=== PATIENT | male | born 1990 | race Caucasian/White ===

== ENCOUNTER 2022-05-09 18:40 | Emergency (ER) | payer OTHER, SELFPAY ==
--- NOTE | 2022-05-09 18:58 | ED.SKABFB ---
HPI - Skin/Abscess/Foreign Bdy General Chief complaint: Wound/Laceration Stated complaint: tick bite Time Seen by Provider: 05/09/22 18:49 Source: patient and RN notes reviewed Mode of arrival: ambulatory Limitations: no limitations History of Present Illness HPI narrative: 31-year-old male presents with concern for rash on his right upper arm. Reports 2 weeks ago he pulled a tick out of that area. Reports he noticed the rash yesterday. Reports it is slightly itchy and irritating, denies pain. He denies any foreign body, reports he the entire take to his knowledge. He denies fever, body aches, chills, sweats, headache, chest pain, abnormal heart beat, nausea, vomiting. Reports he has been cleaning the rash with alcohol to dry it out MD complaint: rash Related Data Allergies Allergy/AdvReac Type Severity Reaction Status Date / Time No Known Allergies Allergy Unverified 10/02/15 13:07 Review of Systems Review of Systems: CONSTITUTIONAL: Denies malaise, chills, sweats, or fever. EYES: Denies redness, or discharge. ENT: Denies rhinorrhea, congestion, swollen lips, swollen tongue CARDIOVASCULAR: Denies chest pain, palpitations, or edema. RESPIRATORY: Denies cough or dyspnea. GASTROINTESTINAL: Denies abdominal pain, nausea, vomiting SKIN: Reports rash to the right upper arm MUSCULOSKELETAL: Denies joint painor myalgia. NEUROLOGIC: Denies headache. All systems reviewed & are unremarkable except as noted in HPI and below PMFSH Family History Family History (Updated 06/28/16 @ 23:19 by DOCTOR UNKNOWN) Father Asthma Malignant neoplasm of prostate Mother Family history of diabetes mellitus in first degree relative Family history of malignant neoplasm of breast in first degree relative Social History Social History Alcohol intake: current Substance use type: marijuana Comments At time of signature, agree with nursing past medical, surgical, social and family history. There is no relevant family history pertinent to the presenting complaint Exam Narrative: GENERAL: Well-appearing, well-nourished, and in no acute distress. HEAD: Normocephalic, atraumatic. EYES: PERRLA, conjunctivae clear ENT: Mucous membranes moist. NECK: Supple. No lymphadenopathy CHEST: Clear to auscultation. No respiratory distress. HEART: Regular rate and rhythm. SKIN: Warm, dry. Bull's-eye pattern rash noted to the right upper arm at the site of tick bite NEURO: Alert and oriented x3. PSYCH: Normal mood and affect Chest: Chest/axillae images: 1. Bull's-eye pattern rash 8cm x 4cm Course Course Emergency Course: This with patient over a rash in association with his tick bite, patient does not have a primary care provider, for that reason we will prescribe 2-week course of doxycycline, patient was still advised to follow-up and find primary Provider for reevaluation. Patient is aware of diagnosis, understands and agrees to treatment plan. Anticipatory guidance given. Patient agrees to follow-up as directed and is aware of reasons to seek care at the emergency department. Portions of this record may have been created with voice recognition software Level of Care: Express Care Visit Vital Signs Vital signs: Reviewed. MDM - Skin/Abscess/Foreign Bdy MDM Narrative Medical decision making narrative: Does not appear at this time to be erythema multiforme, bullous, SJS, TEN; no evidence at this time to suggest RMSF, endocarditis or Lyme disease; patient looks well, nontoxic and is tolerating oral intake; no neurologic signs or symptoms; no headache, photophobia or neck pain; afebrile; appropriate for initial outpatient treatment; discussed the importance of follow-up, patient agrees; question, viral exanthema, contact dermatitis, allergic dermatitis, eczema, urticaria, cellulitis. No soft palate or uvula edema, no tongue, lip edema or other mucosal involvement, no respiratory compromise, no stridor, no wheezing, no wheezing, no his
== END 2022-05-09 19:10 | disposition home or self-care (01) ==
PROVIDERS: Emergency Provider Nurse Practitioner
DX: S40.861A Insect bite (nonvenomous) of right upper arm, initial encounter (principal); W57.XXXA Bitten or stung by nonvenomous insect and other nonvenomous arthropods, initial encounter; A69.20 Lyme disease, unspecified
CPT/HCPCS: 99213; G0463

== ENCOUNTER 2025-09-28 17:46 | Emergency (ER) | payer OTHER, SELFPAY ==
--- NOTE | 2025-09-28 17:51 | ED.URI ---
HPI - URI/Sore Throat General Chief Complaint: Upper Respiratory Infection Stated Complaint: ?Strep Time Seen by Provider: 09/28/25 18:09 Source: patient and RN notes reviewed Mode of arrival: ambulatory Limitations: no limitations History of Present Illness HPI Narrative: 35-year-old male presents with concern for sore throat that started last night cold reports mild runny nose. He denies fever, body aches, chills, sweats, headache, stomach ache. He reports he had strep throat last year the fell similar. MD elicited complaint: cough Related Data Home Medications ?Medication ?Instructions ?Recorded ?Confirmed ?Last Taken ?Type No Home Medications 09/28/25 09/28/25 Unknown History Allergies Allergy/AdvReac Type Severity Reaction Status Date / Time No Known Allergies Allergy Verified 09/28/25 18:01 Review of Systems Review of Systems: CONSTITUTIONAL: Denies malaise, chills, sweats, or fever. EYES: Denies visual changes, redness, or discharge. ENT: Reports rhinorrhea, sore throat. Denies congestion, sinus pain, otalgia CARDIOVASCULAR: Denies chest pain, palpitations, or edema. RESPIRATORY: Denies cough. Denies dyspnea. GASTROINTESTINAL: Denies abdominal pain, nausea, vomiting, diarrhea SKIN: Denies rash or itching. MUSCULOSKELETAL: Denies myalgia. NEUROLOGIC: Denies headache. All systems reviewed & are unremarkable except as noted in HPI and below PMFSH Past Medical History Medical History (Updated 09/28/25 @ 18:11 by Yamini Pederson APRN) Hx of tear of meniscus of knee joint left Hx of fracture of face bones Family History Family History Father Asthma Malignant neoplasm of prostate Mother Family history of diabetes mellitus in first degree relative Family history of malignant neoplasm of breast in first degree relative Social History Social History (Updated 07/26/22 @ 08:57 by Sonal Bull MA) Smoking status: Never smoker Second hand tobacco smoke exposure: No Alcohol intake: current Drinks per week: 15 Substance use: current Substance use type: marijuana Living arrangements: with family Occupation/Education: occupation Gender identity (if verbalized by the patient): Male Spiritual care concerns: No Comments At time of signature, agree with nursing past medical, surgical, social and family history. There is no relevant family history pertinent to the presenting complaint Exam Narrative: GENERAL: Well-appearing, well-nourished, and in no acute distress. HEAD: Normocephalic EYES: PERRLA, conjunctivae clear ENT: Nares clear, clear discharge. Mucous membranes moist. TM pearly arnett with sharp light reflex bilaterally; no tragal tenderness. Oropharynx not erythematous without lesions. Tonsils not enlarged and without exudate, no drooling, no hoarseness, no trismus, uvula midline. NECK: Supple. No lymphadenopathy CHEST: Clear to auscultation, breath sounds equal. No wheezing, rhonchi, rales, or stridor. No respiratory distress, speaks in full sentences. HEART: Regular rate and rhythm. No murmur heard. SKIN: Warm, dry, no rash. NEURO: Alert and oriented x3. PSYCH: Normal mood and affect Course Course Emergency Course: Patient is aware of diagnosis, understands and agrees to treatment plan. Anticipatory guidance given. Patient agrees to follow-up as directed and is aware of reasons to seek care at the emergency department. Portions of this record may have been created with voice recognition software Level of Care: Express Care Visit Vital Signs Vital signs: Reviewed. MDM - URI/Sore Throat MDM Narrative Medical decision making narrative: Differential diagnosis considered: Hernandes virus, strep pharyngitis, allergic rhinitis, upper respiratory tract infection, sinusitis, rhinosinusitis, nasopharyngitis. viral pharyngitis, otitis media, otitis externa, pneumonia, bronchitis, viral cough syndrome, viral syndrome, and influenza. Exam findings show no acute concerns or changes; patient is non-toxic appearing and is in no distress. Patient is appropriate for outpatient treatment and follow-up. Lab Data Attestation: I reviewed the patient's lab results. Critical Care Time Critical Care Time Critical Care Time: No Discharge Plan Discharge Clinical Impression: Upper respiratory infection Patient Disposition: Home Condition: Stable Instructions: Upper Respiratory Infection (ED) Additional Instructions: Your rapid strep swab was negative today at [facility]. A throat culture will be sent to the laboratory for further testing. If the test is positive, you will receive a phone call within 48 hours and an appropriate antibiotic will be initiated at that time. Your symptoms are likely due to a viral illness, which is not treated with antibiotics. Viral symptoms can be present for up to a few weeks. -Alternate Tylenol and Motrin per package directions for fever or pain. -Antihistamine medication such as Benadryl at night and Zyrtec during the day can help improve symptoms. -Eat and drink things that are easy to swallow, like tea or soup, or popsicles to suck on. -Oral rinses such as: Salt water gargles and/or may use topical anesthetic (eg. Chloraseptic spray) or lozenges to relieve dryness or throat pain). -Frequent hand washing or hand client services analyst is one of the best ways to prevent spread of infection. -Follow up with primary care provider in 2-3 days if condition is not improving; or seek ER visit if you have trouble breathing, cannot drink enough fluids, have muffled voice, difficulty opening your mouth, or severe swelling. Patient Language: Indian Follow-up/Referrals: PHYSICIAN,SALES COMMUNICATIONS MANAGER [Primary Care Provider, Internal Medicine] Time of Disposition: 18:11
[2025-09-28 17:58] VITALS: BP 111/78; PULSE 71; RESP 16; TEMP 36.6; O2SAT 100
[2025-09-28 18:08] LABS: EDSTREPNEGPOS1 Negative (Negative)
--- OUTSIDE RECORDS SUMMARY | 2025-09-28 18:11 | XMS_ITS | Clinical Summary ---
Author Organization [facility] Address [address] [place] [address] Phone Care Team Providers Care Pipe Puller Name Role Phone Provider, None Primary Care Provider Unavailabl e Medications No known medications Social History Tobacco Use Types Packs/Day Years Used Date Smoking Tobacco: Never Assessed Sex and Gender Information Value Date Recorded Sex Assigned at Not on file Legal Sex Male 2:00 PM NEWS WIRE PHOTO OPERATOR Gender Identity Not on file Sexual Orientation Not on file Last Filed Vital Signs Vital Sign Reading Time Taken Comments Blood Pressure 135/68 01/21/2025 3:53 PM NEWS WIRE PHOTO OPERATOR Pulse 91 01/21/2025 3:53 PM NEWS WIRE PHOTO OPERATOR Temperature 37.5 C (99.5 F) 01/21/2025 3:53 PM NEWS WIRE PHOTO OPERATOR Respiratory Rate 18 01/21/2025 3:53 PM NEWS WIRE PHOTO OPERATOR Oxygen Saturation 98% 01/21/2025 3:53 PM NEWS WIRE PHOTO OPERATOR Inhaled Oxygen Concentration - - Weight 77.1 kg (170 lb) 01/21/2025 2:10 PM NEWS WIRE PHOTO OPERATOR Height 177.8 cm (5' 10) 01/21/2025 2:10 PM NEWS WIRE PHOTO OPERATOR Body Mass Index 24.39 01/21/2025 2:10 PM NEWS WIRE PHOTO OPERATOR Plan of Treatment Not on file Insurance [employer] Care Teams Pipe Puller Relationship Specialty Start Date End Date Provider, None [place] PCP - General 01/21/25
--- OUTSIDE RECORDS SUMMARY | 2025-09-28 18:11 | XMS_ITS | Clinical Summary ---
Author Organization [facility] Health Address [address] [place] [address] Care Team Providers Care Server Developer Name Role Phone Unavailable Primary Care Provider Unavailabl e Source Comments [facility],non-owned Affiliates and Associated Physician Practices is amultiple site organization consisting of ambulatory clinics and hospital sitesin [place], [place], [place] and [place]. This disclosure is being madepursuant to the Care Everywhere program and may not contain all information available regarding this patient. Last updated 18.[facility] [employer] Allergies No known active allergies Immunizations Immunization Administration Dates Next Due INFLUENZA VACCINE, QUADR. (F LUZONE; FLULAVAL; FLUARIX; AFLURIA QUADRIVALENT; 6MO+), 0.5 ML (IIV4) 09/21/2019,09/15/2018 Social History Tobacco Use Types Packs/Day Years Used Date Smoking Tobacco: Never Assessed Sex and Gender Information Value Date Recorded Sex Assigned at Not on file Legal Sex Male 3:34 PM CDT Gender Identity Not on file Sexual Orientation Not on file Plan of Treatment Health Maintenance Due Date Last Done Comments HIV SCREENING 2007 HEPATITIS C SCREENING 06/16/2010 DTAP/TDAP/TD VACCINES (1 - Tdap) 2011 HEPATITIS B VACCINE (1 of 3 - 19+ 3-dose series) 2011 HPV VACCINE (1 - 3-dose SCDM series) 2019 DEPRESSION SCREENING 12/01/2024 COVID-19 VACCINE (1 - 2023-2 5 season) 2025 INFLUENZA VACCINE (#1) 2025 9, 09/15/2018 ZOSTER VACCINE (1 of 2) 2042 HIB VACCINE Aged Out No longer eligi ble based on patient's age to complete this topic MENINGOCOCCAL (Group B) VACCINE SHARED DECISION-MAKING Aged Out No longer eligible based on patient's age to complete this topic MENINGOCOCCAL GROUPS A/C/Y/W VACCINE Aged Out No longer eligible b ased on patient's age to complete this topic PNEUMOCOCCAL VACCINE Aged Out No long er eligible based on patient's age to complete this topic
--- OUTSIDE RECORDS SUMMARY | 2025-09-28 18:11 | XMS_ITS | Clinical Summary ---
Author Organization [facility] Address [address] [place] [id number] Care Team Providers Care Airplane Pilot Commercial Name Role Phone Unavailable Primary Care Provider Unavailabl e Social History Tobacco Use Types Packs/Day Years Used Date Smoking Tobacco: Never Assessed Sex and Gender Information Value Date Recorded Sex Assigned at Not on file Legal Sex Male 6:07 PM CDT Gender Identity Not on file Sexual Orientation Not on file Last Filed Vital Signs Vital Sign Reading Time Taken Comments Blood Pressure 110/80 10/04/2015 3:10 PM BURNER OPERATOR Pulse 64 10/04/2015 3:10 PM BURNER OPERATOR Temperature - - Respiratory Rate - - Oxygen Saturation - - Inhaled Oxygen Concentration - - Weight 76.9 kg (169 lb 8 oz) 10/04/2015 3:10 PM BURNER OPERATOR Height 177.8 cm (5' 10) 10/04/2015 3:10 PM BURNER OPERATOR Body Mass Index 24.32 10/04/2015 3:10 PM BURNER OPERATOR Plan of Treatment Health Maintenance Due Date Last Done Comments Annual Physical 1995 Hepatitis C 2010 DTaP, Tdap and Td Vaccines ( 1 - Tdap) 2011 Hepatitis B Vaccines (1 of 3 - 19+ 3-dose series) 2011 HPV Vaccines (1 - 3-dose SCD M series) 2019 COVID-19 Vaccine ( - 2024-2 6 season) 2025 Influenza Adult (#1) 2025 Hepatitis A Vaccines Aged Out No long er eligible based on patient's age to complete this topic Meningococcal B Vaccine Aged Out No l onger eligible based on patient's age to complete this topic Meningococcal Vaccine Aged Out No jolanta taylor eligible based on patient's age to complete this topic Pneumococcal Vaccine: Pediat rics (0 to 5 Years) and At-Risk Patients (6 to 49 Years) Aged Out No longer eligible b ased on patient's age to complete this topic RSV Immunizations Under 20 Months Aged Out No longer eligible based on patient's age to complete this topic
== END 2025-09-28 18:13 | disposition home or self-care (01) ==
PROVIDERS: Emergency Provider Nurse Practitioner
DX: J06.9 Acute upper respiratory infection, unspecified (principal)
CPT/HCPCS: 87081; 87880; 99213; G0463

== ENCOUNTER 2025-11-17 07:19 | Day surgery (SDC) | payer OTHER, SELFPAY ==
[2025-11-17] VITALS (8 sets, daily range): BP systolic 110–128; BP diastolic 73–94; PULSE 72–94; RESP 16–18; TEMP 36.6–36.8; O2SAT 98–100
--- OUTSIDE RECORDS SUMMARY | 2025-11-17 07:22 | XMS_ITS | Clinical Summary ---
Author Organization [facility] Address [address] [place] [address] Care Team Providers Care Asphalt Heater Tender Name Role Phone Unavailable Primary Care Provider [...] Comments Blood Pressure 110/80 10/04/2015 3:10 PM AUTOMOTIVE ACCESSORY INSTALLER Pulse 64 10/04/2015 3:10 PM AUTOMOTIVE ACCESSORY INSTALLER Temperature - - Respiratory Rate - - Oxygen Saturation - - Inhaled Oxygen Concentration - - Weight 76.9 kg (169 lb 8 oz) 10/04/2015 3:10 PM AUTOMOTIVE ACCESSORY INSTALLER Height 177.8 cm (5' 10) 10/04/2015 3:10 PM AUTOMOTIVE ACCESSORY INSTALLER Body Mass Index 24.32 10/04/2015 3:10 PM AUTOMOTIVE ACCESSORY INSTALLER Plan of Treatment Health Maintenance Due Date [...]
--- OUTSIDE RECORDS SUMMARY | 2025-11-17 07:22 | XMS_ITS | Clinical Summary ---
Author Organization [facility] Address [address] [place] [address] Phone Care Team Providers Care Cvir Tech Name Role Phone Provider, None Primary Care Provider Unavailabl e Medications No known medications Social History Tobacco Use Types Packs/Day Years Used Date Smoking Tobacco: Never Assessed Sex and Gender Information Value Date Recorded Sex Assigned at Not on file Legal Sex Male 2:00 PM FINGER LIFT OPERATOR Gender Identity Not on file Sexual Orientation Not on file Last Filed Vital Signs Vital Sign Reading Time Taken Comments Blood Pressure 135/68 01/21/2025 3:53 PM FINGER LIFT OPERATOR Pulse 91 01/21/2025 3:53 PM FINGER LIFT OPERATOR Temperature 37.5 C (99.5 F) 01/21/2025 3:53 PM FINGER LIFT OPERATOR Respiratory Rate 18 01/21/2025 3:53 PM FINGER LIFT OPERATOR Oxygen Saturation 98% 01/21/2025 3:53 PM FINGER LIFT OPERATOR Inhaled Oxygen Concentration - - Weight 77.1 kg (170 lb) 01/21/2025 2:10 PM FINGER LIFT OPERATOR Height 177.8 cm (5' 10) 01/21/2025 2:10 PM FINGER LIFT OPERATOR Body Mass Index 24.39 01/21/2025 2:10 PM FINGER LIFT OPERATOR Plan of Treatment Not on file Insurance [employer] Care Teams Cvir Tech Relationship Specialty Start Date End Date Provider, None [place] PCP - General 01/21/25
--- OUTSIDE RECORDS SUMMARY | 2025-11-17 07:22 | XMS_ITS | Clinical Summary ---
Author Organization [facility] Health Address [address] [place] [address] Care Team Providers Care Learning And Development Analyst Name Role Phone Unavailable Primary Care Provider Unavailabl e Source Comments [facility],non-owned Affiliates and Associated Physician Practices is amultiple site organization consisting of ambulatory clinics and hospital sitesin [place], [place], [place] and [place]. This disclosure is being madepursuant to the Care Everywhere program and may not contain all information available regarding this patient. Last updated 18.[facility] [employer] Allergies No known active allergies Immunizations Immunization [...] series) 2019 DEPRESSION SCREENING 12/01/2024 COVID-19 VACCINE ( - 2024-2 6 season) 2025 INFLUENZA VACCINE (#1) 2025 9, [...]
--- NOTE | 2025-11-17 07:25 | ED_ITS ---
HPI - Nausea/Vomiting/Diarrhea General Chief complaint: Skin/Abscess/Foreign Body Stated complaint: food bolus? Time Seen by Provider: 11/17/25 07:20 History of Present Illness HPI Narrative: For years, patient often will have some trouble swallowing and will throw up, but last night he had some fried chicken and it did feel like it got stuck. Has tried multiple methods such as doing handstands, Heimlich, several carbonated beverages without improvement. Related Data Home Medications ?Medication ?Instructions ?Recorded ?Confirmed ?Last Taken ?Type No Home Medications 09/28/25 11/17/25 U nknown History Allergies Allergy/AdvReac Type Severity Reaction Status Date / Time No Known Allergies Allergy Verified 11/17/25 08:08 Review of Systems Review of Systems: All systems reviewed & are unremarkable except as noted in HPI and below PMFSH Past Medical History Medical History (Updated 11/17/25 @ 08:21 by Carmen Melo MD) Hx of tear of meniscus of knee joint left Hx of fracture of face bones Family History Family History Father Asthma Malignant neoplasm of prostate Mother Family history of diabetes mellitus in first degree relative Family history of malignant neoplasm of breast in first degree relative Social History Social History (Updated 07/26/22 @ 08:57 by Sonal Bull MA) Smoking status: Never smoker Second hand tobacco smoke exposure: No Alcohol intake: current Drinks per week: 15 Substance use: current Substance use type: marijuana Living arrangements: with family Occupation/Education: occupation Gender identity (if verbalized by the patient): Male Spiritual care concerns: No Exam Narrative: EXAMINATION OF ORGAN SYSTEMS/BODY AREAS: Constitutional: Vital signs per nursing GENERAL:No acute distress, non-toxic appearing. HEAD: Normal with no signs of head trauma. EYES: EOMI, conjunctiva normal ENT: Hearing grossly intact LUNGS: Nonlabored breathing. HEART: Regular rate and rhythm ABD: Soft, nontender to palpation EXT: Normal range of motion SKIN: No rashes or lesions. NEURO: Alert. No gross focal sensory or strength deficits. PSYCH: Normal affect Course Vital Signs Vital signs: Vital Signs Temperature 98.2 F 11/17/25 07:22 Pulse Rate 90 11/17/25 07:22 Respiratory Rate 16 11/17/25 07:22 Blood Pressure 123/94 H 11/17/25 07:22 Pulse Oximetry 99 11/17/25 07:22 Oxygen Delivery Room Air 11/17/25 07:22 Temperature 98.2 F 11/17/25 07:22 Pulse Rate 90 11/17/25 07:22 Respiratory Rate 16 11/17/25 07:22 Blood Pressure 123/94 H 11/17/25 07:22 Pulse Oximetry 99 11/17/25 07:22 Oxygen Delivery Room Air 11/17/25 07:22 MDM MDM Narrative Medical decision making narrative: 35-year-old male presents here after feeling like fried chicken stuck from last night, has tried multiple methods himself without improvement, I did give him a few sips of diet Ella here and had him jump on his heel but the soda came up immediately. Discussed with GI Dr Vicente who will take him to GI lab. Patient agreeable to plan. Differential Diagnosis Differential Diagnosis: Food bolus, heartburn, stricture, etc. Discharge Plan Discharge Clinical Impression: Food impaction of esophagus Patient Disposition: Still a Patient Condition: Stable
--- OUTSIDE RECORDS SUMMARY | 2025-11-17 07:40 | XMS_ITS | Clinical Summary ---
Author Organization [facility] Address [address] [place] [address] Care Team Providers Care Mixed Crop And Livestock Farmer Name Role Phone Pcp, Lilian Primary Care Provider [phone] Social History Tobacco Use Types Packs/Day Years Used Date Smoking Tobacco: Never Assessed Sex and Gender Information Value Date Recorded Sex Assigned at Not on file Legal Sex Male 3:46 AM EDT Gender Identity Not on file Sexual Orientation Not on file Plan of Treatment Not on file Medical Devices Not on file Care Teams Mixed Crop And Livestock Farmer Relationship Specialty Start Date End Date Lilian Johnson PCP - General Family Medicine 04/09/21
[2025-11-17 07:55] LABS: Hematocrit 45.7 % (42.0-52.0); Hemoglobin 15.8 g/dL (14.0-18.0); Immature Granulocyte Percent A 0.5 % (0-0.5); Lymphocytes Absolute Auto 1.69 K/mm3 (0.9-3.2); Mean Corpuscular HGB Conc 34.6 g/dl (32-36); Mean Corpuscular Hemoglobin 31.5 pg (26-34); Mean Corpuscular Volume 91.0 fl (80-100); Nucleated Red Blood Cells Absolute Auto 0.000 K/mm3 (0.0-0.012); Nucleated Red Blood Cells Perc 0.0 % (0.0-0.2); Platelet Count Result 317 k/mm3 (150-375); Red Blood Count 5.02 M/mm3 (4.6-6.20); White Blood Count 8.3 K/mm3 (4.5-10.0)
[2025-11-17] MEDS: LACTATED RINGERS 1,000 ML 150 ML IV CONT (08:14)
--- NOTE | 2025-11-17 08:14 | WPDANESEPPF ---
Anes - Initial Pre Proc Eval Procedure: Operation Date: 11/17/25 15:30 Proposed Procedures p Esophagogastroduodenoscopy - Ulises Vicente MD Date/Time: 11/17/25 08:14 Surgeon: Ulises Vicente MD Pre Op Diagnosis: food bolus? Patient Data Age: 35 Gender: M Height: 1.78 m Weight: 80.3 kg Last Vital Signs Temp 98.2 F 11/17/25 07:22 Pulse 90 11/17/25 07:22 Resp 16 11/17/25 07:22 BP 123/94 H 11/17/25 07:22 Pulse Ox 99 11/17/25 07:22 O2 Del Method Room Air 11/17/25 07:22 Allergies Allergy/AdvReac Type Severity Reaction Status Date / Time No Known Allergies Allergy Verified 11/17/25 08:08 Home Medications ?Medication ?Instructions ?Recorded ?Confirmed ?Type No Home Medications 09/28/25 11/17/25 History Laboratory Tests 11/17/25 07:45 WBC 8.3 K/mm3 (4.5-10.0) RBC 5.02 M/mm3 (4.6-6.20) Hgb 15.8 g/dL (14.0-18.0) Hct 45.7 % (42.0-52.0) MCV 91.0 fl (80-100) MCH 31.5 pg (26-34) MCHC 34.6 g/dl (32-36) RDW 12.5 % (11.5-14.5) Plt Count 317 k/mm3 (150-375) MPV 8.9 fl (7.4-10.4) Immature Gran % (Auto) 0.5 % (0-0.5) Neut % (Auto) 69.0 % (45.5-73.1) Lymph % (Auto) 20.5 % (18.3-44.2) Sutter % (Auto) 6.1 % (2.6-8.5) Eos % (Auto) 3.2 % (0-4.4) Baso % (Auto) 0.7 % (0.2-1.2) Lymph # (Auto) 1.69 K/mm3 (0.9-3.2) Sutter # (Auto) 0.5 K/mm3 (0.1-0.6) Eos # (Auto) 0.3 K/mm3 (0-0.3) Baso # (Auto) 0.1 K/mm3 (0.0-0.1) Abs Immat Gran (auto) 0.04 H K/mm3 (0.00-0.031) Absolute Neuts (auto) 5.7 K/mm3 (1.3-6.7) Absolute Nucleated RBC 0.000 K/mm3 (0.0-0.012) Nucleated RBC % 0.0 % (0.0-0.2) Sodium Pending Potassium Pending Chloride Pending Carbon Dioxide Pending Anion Gap Pending BUN Pending Creatinine Pending Estim Creat Clear Calc Pending Estimated GFR Pending Glucose Pending Calcium Pending Total Bilirubin Pending AST Pending ALT Pending Alkaline Phosphatase Pending Total Protein Pending Albumin Pending Patient hx anesthesia problems: none Family hx anesthesia problems: none Results Review: All pre-operative results and documents have been reviewed as part of the pre-operative evaluation. [facility] Past Medical History Medical History Hx of tear of meniscus of knee joint left Hx of fracture of face bones Family History Family History Father Asthma Malignant neoplasm of prostate Mother Family history of diabetes mellitus in first degree relative Family history of malignant neoplasm of breast in first degree relative Social History Social History Smoking status: Never smoker Second hand tobacco smoke exposure: No Alcohol intake: current Drinks per week: 15 Substance use: current Substance use type: marijuana Living arrangements: with family Occupation/Education: occupation Gender identity (if verbalized by the patient): Male Spiritual care concerns: No Anes - Eval Final PreProcedure Day of Procedure 11/17/25 08:14 Patient weight: normal Lungs: normal air movement Airway: Mallampati scale class 1 Neurological: alert and oriented Last oral intake: >/= 8 hours ASA classification: II Emergent: yes Anesthetic plan: proceed Anesthesia type and monitoring: general ETT and standard monitoring Results Review: All pre-operative results and documents have been reviewed as part of the pre-operative evaluation. Vapes, cannabis use disorder, now w acute emergent food bolus impaction. Informed Consent: The patient's anesthetic plan and its attendant risks and benefits were discussed with the patient/family/POA. Questions were solicited and answers provided to the satisfaction of the patient/family/POA.
[2025-11-17 08:19] LABS: Alanine Aminotransferase 26 U/L (6-50); Albumin Level 4.9 g/dL (3.5-5.1); Alkaline Phosphatase 73 U/L (38-126); Anion Gap 9 mmol/L (4-12); Aspartate Amino Transferase 34 U/L (17-59); Bilirubin,Total 1.1 mg/dL (0.2-1.3); Blood Urea Nitrogen 14 mg/dL (9-20); Calcium 9.3 mg/dL (8.4-10.2); Carbon Dioxide 27 mmol/L (22-30); Chloride 104 mmol/L (98-107); Estimated CRCL calculation 98 ml/min; Estimated Glomerular Filt Rate > 60; Glucose 93 mg/dL (65-110); Potassium 3.9 mmol/L (3.4-5.0); Sodium 140 mmol/L (137-145); Total Protein 8.8 g/dL (6.3-8.2)
--- NOTE | 2025-11-17 09:09 | P.HP_ITS ---
H&P: HPI History of Present Illness Date/Time: 11/17/25 09:09 Chief Complaint: Food bolus Narrative: The patient was eating chicken last night and felt that the food gets stuck in his esophagus. He is unable to handle his own saliva. He states that he when he eats fast he feels difficulty swallowing. He never had EGD. Review of Systems Review of Systems: All systems reviewed & are unremarkable except as noted in HPI and below PMFSH Past Medical History Medical History Hx of tear of meniscus of knee joint left Hx of fracture of face bones Family History Family History Father Asthma Malignant neoplasm of prostate Mother Family history of diabetes mellitus in first degree relative Family history of malignant neoplasm of breast in first degree relative Social History Social History Smoking status: Never smoker Second hand tobacco smoke exposure: No Alcohol intake: current Drinks per week: 15 Substance use: current Substance use type: marijuana Living arrangements: with family Occupation/Education: occupation Gender identity (if verbalized by the patient): Male Spiritual care concerns: No Meds Home Medications and Allergies Home Medications ?Medication ?Instructions ?Recorded ?Confirmed ?Type No Home Medications 09/28/25 11/17/25 H istory Allergies Allergy/AdvReac Type Severity Reaction Status Date / Time No Known Allergies Allergy Verified 11/17/25 08:08 Vital Signs Vital Signs - 24 hr 11/17/25 07:22 11/17/25 08:10 Temperature 98.2 F 97.8 F Pulse Rate 90 78 Respiratory Rate 16 18 Blood Pressure 123/94 H 127/76 Pulse Oximetry 99 99 Oxygen Delivery Room Air Room Air Exam Const: General: cooperative and healthy appearing Resp: Effort & Inspection: normal respiratory effort and able to speak in complete sentences Auscultation: clear to auscultation bilaterally Cardio: Rate: regular rate Rhythm: regular rhythm GI: Inspection: normal to inspection GI Palp: No No hepatosplenomegaly present Auscultation: normal bowel sounds Rectal Exam: deferred Skin: General skin exam: normal color Psych: Appearance: grossly normal Mental Status: mental status grossly normal Results Labs Labs: Short CBC 11/17/25 Range/Units 07:45 WBC 8.3 (4.5-10.0) K/mm3 Hgb 15.8 (14.0-18.0) g/dL Hct 45.7 (42.0-52.0) % Plt Count 317 (150-375) k/mm3 BMP 11/17/25 07:45 Sodium 140 Potassium 3.9 Chloride 104 Carbon Dioxide 27 BUN 14 Creatinine 0.98 Glucose 93 Calcium 9.3 Liver Function 11/17/25 Range/Units 07:45 Total Bilirubin 1.1 (0.2-1.3) mg/dL AST 34 (17-59) U/L ALT 26 (6-50) U/L Alkaline Phosphatase 73 (38-126) U/L Albumin 4.9 (3.5-5.1) g/dL Assessment and Plan Assessment and plan (1) Food impaction of esophagus: Code(s): T18.128A - Food in esophagus causing other injury, initial encounter; [id number].[id number] - Food entering into or through a natural orifice, initial encounter Status: Acute Assessment and Plan: The patient is deemed a good candidate for the procedure. Consent signed. Will proceed. Prior Studies I have reviewed the following patient records and this information was taken into consideration when formulating the assessment and plan.: previous labs, previous ER visits, previous hospitalizations and previous clinic visits
--- NOTE | 2025-11-17 09:23 | S_PTH ---
PATIENT: Dom Lopez LOC: [facility] U#:[id number] AGE/SX: 35/M ROOM: RE11/17/[address]: Ulises Vicente MD : 1990 BED: DIS: 11/17/2025 SPEC #: [id number] RECD: 11/17/25 10:53 STATUS: KARL REQ #: [id number] GERA: 11/17/25 09:[address]: Ulises Vicente DEPT: [facility] Surgical RECD BY: Laura Boyle ENTERED: 11/17/25 10:53 SP TYPE: Surgical OTHR DR: DELIVERY RN PHYSICIAN Huber Navarro MD Tissues: A - Esophageal Biopsy Procedures: Hematoxylin and Eosin Stain Gross and Microscopic Level 4
== END 2025-11-17 10:45 | disposition home or self-care (01) ==
LOC: ANHED 07:36 → ANHSURGERY 07:38
PROVIDERS: Emergency Provider Emergency Medicine; Visit Provider Internal Medicine Gastroenterology
PROC: 0DJ08ZZ Inspection of Upper Intestinal Tract, Via Natural or Artificial Opening Endoscopic (ICD-10-PCS; CPT 43247; principal; 2025-11-17 15:30)
DX: T18.128A Food in esophagus causing other injury, initial encounter (principal); K29.70 Gastritis, unspecified, without bleeding; K20.0 Eosinophilic esophagitis; W44.F3XA Food entering into or through a natural orifice, initial encounter; F12.90 Cannabis use, unspecified, uncomplicated
CPT/HCPCS: 43247; 43239; 36415; 80053; 85025; 88305; 99285; J0330; J2704; J7120